=== PATIENT | female | born 1985 | race Caucasian/White ===

== ENCOUNTER → 2017-05-12 | Outpatient (REF) ==
[2016-06-13 09:48] VITALS: BP 104/70
== END ==
LOC: LAB 16:19
DX: D64.9 Anemia, unspecified (principal); R53.83 Other fatigue

== ENCOUNTER 2017-10-10 11:06 | Emergency (ER) | payer OTHER ==
[~2017-10-10] VITALS: Ht 167.6 cm; Wt 54.5 kg
[2017-10-10] MEDS ORDERED: MECLIZINE (11:53)
[2017-10-10] MEDS ORDERED: PRILOSEC OTC20 MG PO (11:54)
[2017-10-10 13:01] LABS: EOS % 0.3 % (1.0-5.0); HEMATOCRIT 42.5 % (37.0-47.0); HEMOGLOBIN 13.8 g/dL (12.5-16.0); LYMPH# 1.7 (1.50-4.00); MEAN CELL VOLUME 88 fl (78-100); MEAN CORPUSCULAR HEMOGLOBIN 29 pg (27-31); MEAN CORPUSCULAR HGB CONC 33 g/dL (33-37); MEAN PLATELET VOLUME 10.1 fl (7.4-10.4); MONO # 0.4 (0.20-0.80); NEU # 3.8 (1.40-6.50); PLATELET COUNT 295 K/mm3 (130-400); RED BLOOD COUNT 4.85 M/mm3 (4.10-5.30); RED CELL DISTRIBUTION WIDTH 12.3 % (11.5-14.5); WHITE BLOOD COUNT 5.9 K/mm3 (4.8-10.8)
[2017-10-10 13:14] LABS: ALBUMIN 4.8 g/dL (3.5-5.0); BUN/CREATININE RATIO 18.2 (6.0-26.0); CALCIUM 9.6 mg/dL (8.4-10.2); POTASSIUM 4.1 mmol/L (3.6-5.0); TOTAL BILIRUBIN 0.6 mg/dL (0.2-1.3); TOTAL PROTEIN 8.4 g/dL (6.3-8.2)
[2017-10-10 13:28] LABS: D-DIMER 0.06 mg/L FEU (0.15-0.50)
[2017-10-10 13:56] LABS: URINE APPEARANCE CLEAR; URINE COLOR YELLOW
[2017-10-10 13:57] LABS: URINE BILIRUBIN NEGATIVE (NEGATIVE); URINE BLOOD TRACE (NEGATIVE); URINE GLUCOSE NEGATIVE (NEGATIVE); URINE KETONE NEGATIVE (NEGATIVE); URINE LEUKOCYTE ESTERASE NEGATIVE (NEGATIVE); URINE NITRATE NEGATIVE (NEGATIVE); URINE PROTEIN(semi-quant) NEGATIVE (NEGATIVE); URINE UROBILINOGEN NORMAL (NORMAL); URINE WBC 0-1 /hpf (0-3)
[2017-10-10] MEDS ORDERED: KETOROLAC10 MG PO (14:42)
[2017-10-10] MEDS ORDERED: ATIVAN0.5 MG PO (14:56)
[2017-10-10 15:07] VITALS: BP 114/64
== END 2017-10-10 15:07 | disposition home or self-care (01) ==
LOC: ED 11:06
PROVIDERS: Physician Assistant
DX: R51 Headache (principal); F43.9 Reaction to severe stress, unspecified; R42 Dizziness and giddiness; K21.9 Gastro-esophageal reflux disease without esophagitis; Z87.891 Personal history of nicotine dependence; Z91.018 Allergy to other foods
CPT/HCPCS: J1885; J7120

== ENCOUNTER → 2017-10-18 | Outpatient (CLI) | payer OTHER ==
[~2017-10-18] VITALS: Ht 167.6 cm; Wt 54.5 kg
[~2017-10-18] MED LIST: ATIVAN0.5 MG PO; KETOROLAC10 MG PO; MECLIZINE; PRILOSEC OTC20 MG PO
[2017-10-18 16:31] VITALS: BP 113/60
== END ==
LOC: AMSURD 16:12
DX: R07.9 Chest pain, unspecified (principal)

== ENCOUNTER → 2017-11-09 | Outpatient (CLI) | payer OTHER ==
[2017-10-18 16:31] VITALS: BP 113/60
== END ==
LOC: RAD 10-30 11:00 → VAS 15:33 → RAD 16:00
DX: I34.0 Nonrheumatic mitral (valve) insufficiency (principal)

== ENCOUNTER → 2018-02-07 | Outpatient (CLI) | payer OTHER ==
[2017-10-18 16:31] VITALS: BP 113/60
== END ==
LOC: LAB 10:13
DX: F43.9 Reaction to severe stress, unspecified (principal); F41.9 Anxiety disorder, unspecified

== ENCOUNTER → 2018-03-06 | Outpatient (CLI) | payer OTHER ==
[2017-10-18 16:31] VITALS: BP 113/60
[2018-03-06 11:23] LABS: EOS # 0.1 (0.04-0.40); EOS % 1.5 % (1.0-5.0); HEMATOCRIT 40.7 % (37.0-47.0); HEMOGLOBIN 13.3 g/dL (12.5-16.0); LYMPH# 1.8 (1.50-4.00); MEAN CELL VOLUME 86 fl (78-100); MEAN CORPUSCULAR HEMOGLOBIN 28 pg (27-31); MEAN CORPUSCULAR HGB CONC 33 g/dL (33-37); MEAN PLATELET VOLUME 9.8 fl (7.4-10.4); MONO # 0.5 (0.20-0.80); NEU # 3.1 (1.40-6.50); PLATELET COUNT 280 K/mm3 (130-400); RED BLOOD COUNT 4.71 M/mm3 (4.10-5.30); RED CELL DISTRIBUTION WIDTH 12.8 % (11.5-14.5); WHITE BLOOD COUNT 5.4 K/mm3 (4.8-10.8)
[2018-03-06 11:35] LABS: BUN/CREATININE RATIO 19.5 (6.0-26.0); CALCIUM 9.2 mg/dL (8.4-10.2); POTASSIUM 4.5 mmol/L (3.6-5.0)
[2018-03-06 12:26] LABS: ERYTHROCYTE SEDIMENTATION RATE 22 mm/hr (0-20)
[2018-03-06 20:52] LABS: C-REACTIVE PROTEIN XXX
[2018-03-07 23:28] LABS: ANA SCREEN with REFLEX Negative (Negative)
== END ==
LOC: LAB 11:07
PROVIDERS: Family Medicine
DX: R53.83 Other fatigue (principal); R19.7 Diarrhea, unspecified

== ENCOUNTER → 2018-08-06 | Outpatient (CLI) | payer OTHER ==
[2017-10-18 16:31] VITALS: BP 113/60
== END ==
LOC: LAB 09:26
DX: R42 Dizziness and giddiness (principal); R14.0 Abdominal distension (gaseous)

== ENCOUNTER → 2018-09-10 | Outpatient (CLI) | payer OTHER ==
[2017-10-18 16:31] VITALS: BP 113/60
== END ==
LOC: RAD 08-13 12:00
DX: R42 Dizziness and giddiness (principal)
CPT/HCPCS: A9585

== ENCOUNTER → 2018-09-12 | Outpatient (CLI) | payer OTHER ==
[2017-10-18 16:31] VITALS: BP 113/60
== END ==
LOC: LAB 12:05
DX: R22.42 Localized swelling, mass and lump, left lower limb (principal); M25.572 Pain in left ankle and joints of left foot; M79.672 Pain in left foot

== ENCOUNTER → 2018-10-24 | Outpatient (CLI) | payer OTHER ==
[2017-10-18 16:31] VITALS: BP 113/60
[2018-10-24 09:28] LABS: URINE APPEARANCE HAZY; URINE BILIRUBIN NEGATIVE (NEGATIVE); URINE BLOOD 50 ery/uL (NEGATIVE); URINE COLOR YELLOW; URINE GLUCOSE NEGATIVE (NEGATIVE); URINE KETONE NEGATIVE (NEGATIVE); URINE LEUKOCYTE ESTERASE NEGATIVE (NEGATIVE); URINE NITRATE NEGATIVE (NEGATIVE); URINE PROTEIN(semi-quant) 1+ mg/dL (NEGATIVE); URINE UROBILINOGEN NORMAL (NORMAL)
== END ==
LOC: LAB 09:06
PROVIDERS: Family Medicine
DX: R39.89 Other symptoms and signs involving the genitourinary system (principal)

== ENCOUNTER → 2019-10-31 | Outpatient (CLI) | payer MEDICAID ==
[2017-10-18 16:31] VITALS: BP 113/60
[2019-10-31 15:16] LABS: URINE APPEARANCE CLEAR; URINE COLOR YELLOW
[2019-10-31 15:17] LABS: URINE BILIRUBIN NEGATIVE (NEGATIVE); URINE BLOOD TRACE (NEGATIVE); URINE GLUCOSE NEGATIVE (NEGATIVE); URINE KETONE NEGATIVE (NEGATIVE); URINE LEUKOCYTE ESTERASE NEGATIVE (NEGATIVE); URINE NITRATE NEGATIVE (NEGATIVE); URINE PROTEIN(semi-quant) TRACE mg/dL (NEGATIVE); URINE UROBILINOGEN NORMAL (NORMAL)
== END ==
LOC: LAB 13:31
PROVIDERS: Family Medicine
DX: R00.2 Palpitations (principal)